=== PATIENT | male | born 1940 | race Caucasian/White ===

== ENCOUNTER → 2018-04-07 | Outpatient (CLI) | payer MEDICARE, OTHER ==
[~2018-04-07] MED LIST: ASPI81CH; CELE200 PO; DOCU100 PO; FERR325 PO; GLUC500; HYDR1TAB94 PO; LANS15EC; LANS30EC PO; MICARDIS; MICARDIS PO; OXYC5 PO; WARF4 PO
== END ==
LOC: PLD 07:50 → LAB SHORT 07:50
DX: D22.5 Melanocytic nevi of trunk (principal); L82.1 Other seborrheic keratosis
CPT/HCPCS: 88305

== ENCOUNTER 2018-04-30 08:53 | Day surgery (SDC) | payer MEDICARE, OTHER ==
[~2018-04-30] VITALS: Ht 195.6 cm; Wt 99.8 kg
[~2018-04-30 08:53] MED LIST changes: -ASPI81CH; +ASPI81CH PO; -GLUC500; +GLUC500 PO; -LANS15EC; +LANS15EC PO; -MICARDIS
== END 2018-04-30 12:07 | disposition home or self-care (01) ==
LOC: ORSCMMR 08:53 → ORD 10:00 → ORSCMMR 10:00 → ORSCSDS 10:00 → ORSCMMR 12:07
PROVIDERS: Surgery
PROC: 0YU50JZ Supplement Right Inguinal Region with Synthetic Substitute, Open Approach (ICD-10-PCS; principal; 2018-04-30 10:00)
DX: K40.90 Unilateral inguinal hernia, without obstruction or gangrene, not specified as recurrent (principal); E11.9 Type 2 diabetes mellitus without complications; I10 Essential (primary) hypertension; J44.9 Chronic obstructive pulmonary disease, unspecified; Z87.891 Personal history of nicotine dependence; K21.9 Gastro-esophageal reflux disease without esophagitis; Z79.899 Other long term (current) drug therapy; Z79.82 Long term (current) use of aspirin
CPT/HCPCS: 82947; C1781; J0690; J1100; J1885; J2250; J2405; J2765; J3010; J7120

== ENCOUNTER 2019-08-13 11:04 | Day surgery (SDC) | payer MEDICARE, OTHER ==
[~2019-08-13] VITALS: Ht 195.6 cm; Wt 97.2 kg
[~2019-08-13 11:04] MED LIST changes: +ATOR10 PO; +Aspir 8181 MG PO; +Celebrex200 MG PO; +DAILY VALUE1 EACH PO; +Glucosamine &1 EACH PO
== END 2019-08-13 14:01 | disposition home or self-care (01) ==
LOC: ORSCSDS 11:04
PROVIDERS: Internal Medicine Gastroenterology
PROC: 0DBH8ZX Excision of Cecum, Via Natural or Artificial Opening Endoscopic, Diagnostic (ICD-10-PCS; principal; 2019-08-13 12:30)
PROC: 0DBL8ZX Excision of Transverse Colon, Via Natural or Artificial Opening Endoscopic, Diagnostic (ICD-10-PCS; principal; 2019-08-13 12:30)
DX: Z12.11 Encounter for screening for malignant neoplasm of colon (principal); Z86.010 Personal history of colon polyps; D12.0 Benign neoplasm of cecum; D12.3 Benign neoplasm of transverse colon; K64.8 Other hemorrhoids; K57.30 Diverticulosis of large intestine without perforation or abscess without bleeding; E11.9 Type 2 diabetes mellitus without complications; Z79.82 Long term (current) use of aspirin; Z79.899 Other long term (current) drug therapy
CPT/HCPCS: 82947; 88305; J2704; J7120

== ENCOUNTER → 2020-09-20 | Outpatient (CLI) | payer MEDICARE, OTHER ==
[~2020-09-20] MED LIST changes: +ACET500 PO
== END | disposition home or self-care (01) ==
LOC: LAB SHORT 15:18 → PLD 15:18
DX: D48.5 Neoplasm of uncertain behavior of skin (principal)
CPT/HCPCS: 88305

== ENCOUNTER 2021-09-12 06:40 | Day surgery (SDC) | payer MEDICARE, OTHER ==
[~2021-09-12] VITALS: Ht 195.6 cm; Wt 94.9 kg
--- NOTE | 2021-09-12 06:58 | NUR ---
09/12/21 0658 Mercedes Lopez TETRACAINE DROP AND PLEDGET PLACED IN LEFT EYE BY [facility].G
== END 2021-09-12 08:38 | disposition home or self-care (01) ==
LOC: ORSCSDS 06:40
PROVIDERS: Ophthalmology
PROC: 08RK3JZ Replacement of Left Lens with Synthetic Substitute, Percutaneous Approach (ICD-10-PCS; principal; 2021-09-12 08:00)
DX: H25.12 Age-related nuclear cataract, left eye (principal); H18.512 Endothelial corneal dystrophy, left eye; I10 Essential (primary) hypertension; J44.9 Chronic obstructive pulmonary disease, unspecified; E11.9 Type 2 diabetes mellitus without complications; Z87.891 Personal history of nicotine dependence; Z79.899 Other long term (current) drug therapy
CPT/HCPCS: 82947; J2001; J2250; J3010; J3301; J7040; V2632

== ENCOUNTER 2021-10-10 07:40 | Day surgery (SDC) | payer MEDICARE, OTHER ==
[~2021-10-10] VITALS: Ht 195.6 cm; Wt 94.2 kg
[2021-10-10] MEDS ORDERED: ATOR10 PO (08:11)
== END 2021-10-10 09:45 | disposition home or self-care (01) ==
LOC: ORSCSDS 07:40
PROVIDERS: Ophthalmology
PROC: 08RJ3JZ Replacement of Right Lens with Synthetic Substitute, Percutaneous Approach (ICD-10-PCS; principal; 2021-10-10 09:00)
DX: H25.11 Age-related nuclear cataract, right eye (principal); H18.511 Endothelial corneal dystrophy, right eye; I10 Essential (primary) hypertension; J44.9 Chronic obstructive pulmonary disease, unspecified; Z87.891 Personal history of nicotine dependence; K21.9 Gastro-esophageal reflux disease without esophagitis; Z79.899 Other long term (current) drug therapy
CPT/HCPCS: 82947; J1100; J2001; J2250; J2405; J3010; J3301; J7040; V2632

== ENCOUNTER → 2022-09-11 | Outpatient (CLI) | payer MEDICARE, OTHER ==
[2022-09-11 13:12] LABS: Stool Occult Bld Immuno 1 Negative (NEGATIVE)
== END | disposition home or self-care (01) ==
LOC: LAB SHORT 09:30 → LAB 09:30 → LAB SHORT 11:19
PROVIDERS: Family Medicine
DX: D64.9 Anemia, unspecified (principal)
CPT/HCPCS: 82274

== ENCOUNTER 2023-03-07 07:32 | Day surgery (SDC) | payer MEDICARE, OTHER ==
[~2023-03-07] VITALS: Ht 195.6 cm; Wt 91.8 kg
[2023-03-07] MEDS ORDERED: HYDR1TAB94 (07:51)
[2023-03-07] MEDS ORDERED: ACULAR5 ML (07:52)
[2023-03-07 10:39] VITALS: BP 105/67
== END 2023-03-07 10:31 | disposition home or self-care (01) ==
LOC: ORSCSDS 07:32
PROVIDERS: Internal Medicine Gastroenterology
PROC: 0DBK8ZX Excision of Ascending Colon, Via Natural or Artificial Opening Endoscopic, Diagnostic (ICD-10-PCS; principal; 2023-03-07 09:00)
PROC: 0DBH8ZX Excision of Cecum, Via Natural or Artificial Opening Endoscopic, Diagnostic (ICD-10-PCS; principal; 2023-03-07 09:00)
DX: Z12.11 Encounter for screening for malignant neoplasm of colon (principal); Z86.010 Personal history of colon polyps; D12.0 Benign neoplasm of cecum; D12.2 Benign neoplasm of ascending colon; K57.30 Diverticulosis of large intestine without perforation or abscess without bleeding; K64.4 Residual hemorrhoidal skin tags; Z87.891 Personal history of nicotine dependence; Z79.899 Other long term (current) drug therapy
CPT/HCPCS: 82947; 88305; J2704; J7120

== ENCOUNTER 2024-03-20 17:01 | Emergency (ER) | payer MEDICARE, OTHER ==
[~2024-03-20] VITALS: Ht 195.6 cm; Wt 88.5 kg
[~2024-03-20 17:01] MED LIST changes: +ACULAR5 ML; +ATOR40TA PO; +HYDR1TAB94; +METO25ER PO; +MULVITA PO
[2024-03-20 18:16] LABS: Hematocrit 24.7 % (37.0-53.0); Hemoglobin 7.6 g/dL (13.5-17.5); Mean Corpuscular HGB 27.1 pg (26.0-34.0); Mean Corpuscular HGB Conc 30.8 g/dL (31.5-36.5); Mean Corpuscular Volume 88 fL (80-100); Mean Platelet Volume 10.8 fL (9.1-12.4); Platelet Count 351 K/mm3 (150-400); RDW Coefficient Variation 18.6 % (11.7-14.2); White Blood Cell Count 13.27 K/mm3 (4.00-11.30)
[2024-03-20] MEDS ORDERED: NS 1,000 ML IV SCH ×2 (18:20→21:35)
[2024-03-20 18:43] LABS: BASOPHILS ABSOLUTE MAN 0.13 K/mm3 (0.00-0.23); BASOPHILS PERCENT MAN 1 % (0-2); EOSINOPHILS ABSOLUTE MAN 2.12 K/mm3 (0.00-0.68); EOSINOPHILS PERCENT MAN 16 % (0-6); LYMPHOCYTES ABSOLUTE MAN 1.32 K/mm3 (0.84-5.20); LYMPHOCYTES PERCENT MAN 10 % (21-46); MONOCYTES ABSOLUTE MAN 0.66 K/mm3 (0.16-1.47); MONOCYTES PERCENT MAN 5 % (4-13); NEUTROPHILS ABSOLUTE MAN 9.02 K/mm3 (1.96-9.15); SEG NEUTROPHILS PERCENT MAN 68 % (41-73); TOTAL CELLS COUNTED 100
[2024-03-20 18:54] LABS: Albumin, Blood 3.2 g/dL (3.4-5.0); Albumin/Globulin Ratio 1.1 (0.8-1.8); Bilirubin, Total 0.5 mg/dL (0.1-1.0); Bun/Creatinine Ratio 17.5 (12.0-20.0); Calcium, Blood 8.4 mg/dL (8.5-10.1); Creatinine, Blood 1.89 mg/dL (0.60-1.20); Globulin, Blood 2.9 g/dL (2.2-4.0); Potassium, Blood 4.3 mmol/L (3.5-5.5); Total Protein, Blood 6.1 g/dL (6.4-8.2)
[2024-03-20 19:01] LABS: Source, Urine Clean Catch
[2024-03-20 19:07] LABS: Appearance, Urine Clear (Clear); Bilirubin, Urine Neg (Neg); Blood, Urine Neg (Neg); Glucose Qualitative, Urine Neg (Neg); Ketones, Urine Neg (Neg); Leukocyte Esterase, Urine Neg (Neg); Nitrite, Urine Neg (Neg); Protein, Urine 1+ (Neg); Specific Gravity, Urine 1.015 (1.003-1.022); Urobilinogen, Urine NORM (Normal)
[2024-03-20 19:16] LABS: Color, Urine Pale Yellow (P-Yellow)
[2024-03-21 00:15] VITALS: BP 92/44
== END 2024-03-21 00:29 | disposition home or self-care (01) ==
LOC: ER 17:01
PROVIDERS: Nurse Practitioner
DX: D64.9 Anemia, unspecified (principal); I10 Essential (primary) hypertension; K21.9 Gastro-esophageal reflux disease without esophagitis; E11.9 Type 2 diabetes mellitus without complications; J44.9 Chronic obstructive pulmonary disease, unspecified; Z87.891 Personal history of nicotine dependence; Z79.899 Other long term (current) drug therapy; Z79.82 Long term (current) use of aspirin
CPT/HCPCS: 80053; 85025; 86850; 86900; 86901; 86923; J7030; P9016

== ENCOUNTER 2024-04-29 10:02 | Inpatient (IN) | payer MEDICARE, OTHER ==
[~2024-04-29] VITALS: Ht 195.6 cm; Wt 90.6 kg
[2024-04-29 11:22] LABS: BASOPHILS ABSOLUTE AUTO 0.16 K/mm3 (0.00-0.23); BASOPHILS PERCENT AUTO 2 % (0-2); EOSINOPHILS ABSOLUTE AUTO 0.59 K/mm3 (0.00-0.68); EOSINOPHILS PERCENT AUTO 8 % (0-6); Hematocrit 25.9 % (37.0-53.0); IMMATURE GRAN ABSOLUTE AUTO 0.01 K/mm3 (0.00-0.10); IMMATURE GRAN PERCENT AUTO 0 % (0-1); LYMPHOCYTES ABSOLUTE AUTO 1.92 K/mm3 (0.84-5.20); LYMPHOCYTES PERCENT AUTO 27 % (21-46); MONOCYTES ABSOLUTE AUTO 0.83 K/mm3 (0.16-1.47); MONOCYTES PERCENT AUTO 12 % (4-13); Mean Corpuscular HGB 28.9 pg (26.0-34.0); Mean Corpuscular HGB Conc 30.9 g/dL (31.5-36.5); Mean Corpuscular Volume 94 fL (80-100); NEUTROPHILS ABSOLUTE AUTO 3.65 K/mm3 (1.96-9.15); NEUTROPHILS PERCENT AUTO 51 % (41-73); NRBC ABSOLUTE 0.02 K/mm3 (0.00-0.02); NRBC Auto 0.3 /100 WBC (0.0-0.2); Platelet Count 128 K/mm3 (150-400); RDW Coefficient Variation 22.6 % (11.7-14.2); RDW Standard Deviation 76.8 fL (35.1-46.3); Red Blood Cell Count 2.77 M/mm3 (4.30-5.90); White Blood Cell Count 7.16 K/mm3 (4.00-11.30)
[2024-04-29] MEDS ORDERED: TRAZ50 PO (11:48)
[2024-04-29] MEDS ORDERED: Revlimid10 MG PO (11:48)
[2024-04-29 11:56] LABS: Albumin, Blood 3.7 g/dL (3.4-5.0); Albumin/Globulin Ratio 1.1 (0.8-1.8); Bilirubin, Total 1.3 mg/dL (0.1-1.0); Bun/Creatinine Ratio 14.9 (12.0-20.0); Calcium, Blood 9.2 mg/dL (8.5-10.1); Creatinine, Blood 1.01 mg/dL (0.60-1.20); Globulin, Blood 3.5 g/dL (2.2-4.0); Potassium, Blood 3.7 mmol/L (3.5-5.5); Total Protein, Blood 7.2 g/dL (6.4-8.2)
[2024-04-29] MEDS ORDERED: Furosemide 10 MG / ML 2ML Vial IV ONE (12:25)
[2024-04-29] MEDS ORDERED: HYDROcodone 5-APAP 325 TAB PO PRN (13:45)
[2024-04-29 15:06] VITALS: BP 141/84
[2024-04-29] MEDS ORDERED: Furosemide 10 MG / ML 2ML Vial IV SCH (18:00)
[2024-04-29 19:29] VITALS: BP 121/64
[2024-04-29] MEDS ORDERED: Fludrocortisone Acetate 0.1 MG Tab PO SCH (21:00)
[2024-04-29] MEDS ORDERED: TraZODone HCl 50 MG Tab PO SCH (21:00)
[2024-04-30] VITALS (9 sets, daily range): BP systolic 114–138; BP diastolic 61–77
--- NOTE | 2024-04-30 05:08 | NUR ---
CASHIER TUBE ROOM PATIENT IS A&OX4, VITALS ARE STABLE, ON ROOM AIR. PATIENT DENIED ANY PAIN. TELE IS RUNNIGN SINUS RHYTHM BUT HAD A ONE TIME 8 SECONDS RUN OF SVT WHEN PATIENT WAS WALKING TO THE BATHROOM. PATIENT HAS PADDY EDEMA TO BILAERAL LOWER EXTREMITIES AND SCATTERED RASH TO ARMS AND LEGS THAT HE WAS ADMITTED WITH. PATIENT CALLS APPROPRIATELY.
[2024-04-30 05:29] LABS: BASOPHILS ABSOLUTE AUTO 0.17 K/mm3 (0.00-0.23); BASOPHILS PERCENT AUTO 3 % (0-2); EOSINOPHILS ABSOLUTE AUTO 1.44 K/mm3 (0.00-0.68); EOSINOPHILS PERCENT AUTO 23 % (0-6); Hematocrit 22.1 % (37.0-53.0); Hemoglobin 6.8 g/dL (13.5-17.5); IMMATURE GRAN PERCENT AUTO 0 % (0-1); LYMPHOCYTES ABSOLUTE AUTO 1.77 K/mm3 (0.84-5.20); LYMPHOCYTES PERCENT AUTO 28 % (21-46); MONOCYTES ABSOLUTE AUTO 0.98 K/mm3 (0.16-1.47); MONOCYTES PERCENT AUTO 16 % (4-13); Mean Corpuscular HGB 28.5 pg (26.0-34.0); Mean Corpuscular HGB Conc 30.8 g/dL (31.5-36.5); Mean Corpuscular Volume 93 fL (80-100); Mean Platelet Volume 10.9 fL (9.1-12.4); NEUTROPHILS ABSOLUTE AUTO 1.89 K/mm3 (1.96-9.15); NEUTROPHILS PERCENT AUTO 30 % (41-73); NRBC ABSOLUTE 0.02 K/mm3 (0.00-0.02); NRBC Auto 0.3 /100 WBC (0.0-0.2); Platelet Count 113 K/mm3 (150-400); RDW Coefficient Variation 22.5 % (11.7-14.2); RDW Standard Deviation 74.4 fL (35.1-46.3); Red Blood Cell Count 2.39 M/mm3 (4.30-5.90); White Blood Cell Count 6.25 K/mm3 (4.00-11.30)
[2024-04-30 05:58] LABS: BASOPHILS PERCENT MAN 0 % (0-2); EOSINOPHILS ABSOLUTE MAN 1.43 K/mm3 (0.00-0.68); EOSINOPHILS PERCENT MAN 23 % (0-6); LYMPHOCYTES ABSOLUTE MAN 1.62 K/mm3 (0.84-5.20); LYMPHOCYTES PERCENT MAN 26 % (21-46); MONOCYTES ABSOLUTE MAN 0.56 K/mm3 (0.16-1.47); MONOCYTES PERCENT MAN 9 % (4-13); NEUTROPHILS ABSOLUTE MAN 2.62 K/mm3 (1.96-9.15); SEG NEUTROPHILS PERCENT MAN 42 % (41-73); TOTAL CELLS COUNTED 100
[2024-04-30] MEDS ORDERED: Pantoprazole Sodium 40 MG Tab PO SCH (06:00)
[2024-04-30 06:01] LABS: Albumin/Globulin Ratio 1.1 (0.8-1.8); Calcium, Blood 8.6 mg/dL (8.5-10.1); Creatinine, Blood 1.09 mg/dL (0.60-1.20); Globulin, Blood 2.8 g/dL (2.2-4.0); Total Protein, Blood 5.8 g/dL (6.4-8.2)
[2024-04-30] MEDS ORDERED: Losartan Potassium 25 MG Tab PO SCH (09:00)
[2024-04-30] MEDS ORDERED: Enoxaparin 40 MG/0.4 ML SYR SC SCH (09:00)
[2024-04-30] MEDS ORDERED: Furosemide 10 MG / ML 2ML Vial IV SCH (09:00)
[2024-04-30] MEDS ORDERED: Aspirin 81 MG TabEC PO SCH (09:00)
[2024-04-30] MEDS ORDERED: Metoprolol Succinate 25 MG TABCR PO SCH (09:00)
[2024-04-30] MEDS ORDERED: Atorvastatin 40 MG Tab PO SCH (09:00)
[2024-04-30] MEDS ORDERED: NS 1,000 ML BAG IR SCH (09:05)
[2024-04-30] MEDS ORDERED: NS 250 ML IV PRN (09:10)
[2024-04-30] MEDS ORDERED: Potassium Chloride 20 MEQ TabCR PO SCH (10:00)
[2024-04-30] MEDS ORDERED: KLOR-CON M1010 MEQ PO (11:37)
[2024-04-30] MEDS ORDERED: FLUDROCORTISON0.1 M1 PO (11:45)
[2024-04-30] MEDS ORDERED: Potassium Chloride 10 Meq Tablet SA PO ONE (12:30)
[2024-04-30] MEDS ORDERED: DiphenhydrAMINE HCL 25 MG Cap PO PRN (17:25)
[2024-04-30] MEDS ORDERED: Polyethylene Glycol 3350 17 gm PO PRN (17:25)
--- NOTE | 2024-04-30 17:26 | NUR ---
SHIFT SUMMARY PATIENT A/O TIMES FOUR, AMBULATES WITH WALKER, VSS, LUNGS CLEAR, S1/S2, EDEMA NOTED IN LOWER EXTREMITIES PITTING EDEMA 2+/, PEDAL BILITERAL PULSE +2, RADIAL PULSE +1. CAPILARY REFILL LESS <3. NO SIGNS OF CARDIAC OR RESPIRATORY DISTRESS.
[2024-05-01 02:43] VITALS: BP 125/71
--- NOTE | 2024-05-01 04:38 | NUR ---
SHIFT SUMMARY ADMITTED FOR ACUTE ON CHRONIC CHF. FULL CODE. WE ARE DIURESING HIM. PLAN IS FOR DC HOME TODAY W/HH. TELEMETRY: NSR @ 96 BPM. 1 UNIT OF PRBC'S GIVEN ON THE PREVIOUS SHIFT. BLE EDEMA AND DYSPNEA ARE IMPROVING. SPOUSE IN ROOM. CARDIAC DIET. 1 ASSIST W/FWW - BRP. ON RA. HX OF CHF - EF 35-45%, CARDIOMYOPATHY W/SEVERE LV SYSTOLIC DYSFUNCTION, AORTIC STENOSIS.
[2024-05-01 05:33] LABS: BASOPHILS ABSOLUTE AUTO 0.18 K/mm3 (0.00-0.23); BASOPHILS PERCENT AUTO 3 % (0-2); EOSINOPHILS ABSOLUTE AUTO 2.11 K/mm3 (0.00-0.68); EOSINOPHILS PERCENT AUTO 30 % (0-6); Hematocrit 25.3 % (37.0-53.0); Hemoglobin 7.9 g/dL (13.5-17.5); IMMATURE GRAN ABSOLUTE AUTO 0.01 K/mm3 (0.00-0.10); IMMATURE GRAN PERCENT AUTO 0 % (0-1); LYMPHOCYTES ABSOLUTE AUTO 1.92 K/mm3 (0.84-5.20); LYMPHOCYTES PERCENT AUTO 28 % (21-46); MONOCYTES ABSOLUTE AUTO 0.99 K/mm3 (0.16-1.47); MONOCYTES PERCENT AUTO 14 % (4-13); Mean Corpuscular HGB 28.8 pg (26.0-34.0); Mean Corpuscular HGB Conc 31.2 g/dL (31.5-36.5); Mean Corpuscular Volume 92 fL (80-100); Mean Platelet Volume 10.9 fL (9.1-12.4); NEUTROPHILS ABSOLUTE AUTO 1.73 K/mm3 (1.96-9.15); NEUTROPHILS PERCENT AUTO 25 % (41-73); NRBC ABSOLUTE 0.03 K/mm3 (0.00-0.02); NRBC Auto 0.4 /100 WBC (0.0-0.2); Platelet Count 129 K/mm3 (150-400); RDW Coefficient Variation 22.2 % (11.7-14.2); RDW Standard Deviation 73.3 fL (35.1-46.3); Red Blood Cell Count 2.74 M/mm3 (4.30-5.90); White Blood Cell Count 6.94 K/mm3 (4.00-11.30)
[2024-05-01 06:03] LABS: Bun/Creatinine Ratio 12.5 (12.0-20.0); Calcium, Blood 8.9 mg/dL (8.5-10.1); Creatinine, Blood 1.12 mg/dL (0.60-1.20); Potassium, Blood 3.7 mmol/L (3.5-5.5)
[2024-05-01 06:17] LABS: BASOPHILS ABSOLUTE MAN 0.06 K/mm3 (0.00-0.23); BASOPHILS PERCENT MAN 1 % (0-2); EOSINOPHILS ABSOLUTE MAN 2.08 K/mm3 (0.00-0.68); EOSINOPHILS PERCENT MAN 30 % (0-6); LYMPHOCYTES ABSOLUTE MAN 2.42 K/mm3 (0.84-5.20); LYMPHOCYTES PERCENT MAN 35 % (21-46); MONOCYTES ABSOLUTE MAN 0.76 K/mm3 (0.16-1.47); MONOCYTES PERCENT MAN 11 % (4-13); NEUTROPHILS ABSOLUTE MAN 1.59 K/mm3 (1.96-9.15); SEG NEUTROPHILS PERCENT MAN 23 % (41-73); TOTAL CELLS COUNTED 100
[2024-05-01 07:13] VITALS: BP 132/72
[2024-05-01] MEDS ORDERED: FURO20 PO (10:59)
[2024-05-01] MEDS ORDERED: LOSA25 PO (11:00)
--- NOTE | 2024-05-01 13:49 | NUR ---
DISCHARGE SUMMARY PATIENT DISCHARGED THIS SHIFT. IV REMOVED PRIOR TO DISCHARGE, NO COMPLICATIONS. DISCHARGE PACKET GIVEN AND REVIEWED, VERBALIZED ACKNOWLEDGEMENT. TO DRIVE HOME.
== END 2024-05-01 12:20 | disposition home or self-care (01) | DRG 291 ==
LOC: ER 10:02 → MEDS 10:03 → ENPENDDIS 05-01 10:43 → MEDS 05-01 12:20
PROVIDERS: Nurse Practitioner; ADMIT Internal Medicine
PROC: 30233N1 Transfusion of Nonautologous Red Blood Cells into Peripheral Vein, Percutaneous Approach (ICD-10-PCS; principal; 2024-04-30)
DX: I13.0 Hypertensive heart and chronic kidney disease with heart failure and stage 1 through stage 4 chronic kidney disease, or unspecified chronic kidney disease (principal); I50.23 Acute on chronic systolic (congestive) heart failure; J96.01 Acute respiratory failure with hypoxia; D62 Acute posthemorrhagic anemia; C90.00 Multiple myeloma not having achieved remission; N18.9 Chronic kidney disease, unspecified; K21.9 Gastro-esophageal reflux disease without esophagitis; J44.9 Chronic obstructive pulmonary disease, unspecified; D63.1 Anemia in chronic kidney disease; I35.0 Nonrheumatic aortic (valve) stenosis; I25.10 Atherosclerotic heart disease of native coronary artery without angina pectoris; N40.0 Benign prostatic hyperplasia without lower urinary tract symptoms; I42.9 Cardiomyopathy, unspecified; I95.1 Orthostatic hypotension; Z98.52 Vasectomy status; Z98.890 Other specified postprocedural states; Z90.49 Acquired absence of other specified parts of digestive tract; Z98.1 Arthrodesis status; Z90.89 Acquired absence of other organs; Z96.659 Presence of unspecified artificial knee joint; Z88.8 Allergy status to other drugs, medicaments and biological substances; Z88.1 Allergy status to other antibiotic agents; Z91.040 Latex allergy status; Z79.82 Long term (current) use of aspirin; Z79.899 Other long term (current) drug therapy
CPT/HCPCS: 36415; 36430; 71046; 80048; 80053; 83880; 84484; 85025; 86850; 86900; 86901; 86923; 93005; 93010; 93306; 96372; 96374; 96376; 99285-25; A9270; G0378; J1650; J1940; J7050; P9016